=== PATIENT | female | born 1975 | race African-American/Black ===

== ENCOUNTER 2018-11-08 18:53 | Inpatient (IN) ==
[2018-11-08] MEDS ORDERED: ONDANSETRON 4 MG/2 ML VIAL IV PRN (22:22)
[2018-11-08] MEDS ORDERED: DOCUSATE SODIUM 100 MG CAPSULE PO PRN (22:22)
[2018-11-08] MEDS: HEPARIN DRIP 25,000 UNITS/500 ML PREMIX IV SCH (22:30)
[2018-11-08 23:56] LABS: Risk Ratio 3.46; Thyroid Stimulating Hormone 1.58 uIU/ml (0.358-3.74); VLDL CHOLESTEROL 20.4 MG/DL
[2018-11-09 00:01] LABS: INR 1.1; PT Patient Result 11.8 SECS; Partial Thromboplastin Time 37.5 SECS (0-40)
[2018-11-09] MEDS: SODIUM CHLORIDE 0.9% 1,000 ML IV SCH ×2 (00:25→12:03)
[2018-11-09] MEDS ORDERED: HEPARIN 5,000 UNIT/1 ML VIAL IV ONE (00:28)
[2018-11-09] MEDS: oxyCODONE/ACETAMINOPHEN 5-325 MG TABLET PO PRN ×3 (02:00→22:32)
[2018-11-09 06:53] LABS: Basophils % 0.2 % (0.0-0.8); Eosinophils % 0.3 % (0.00-10.9); Hematocrit 31.1 VOL% (35.7-47.0); Hemoglobin 9.5 GM/DL (12.0-16.0); Immature Granulocytes % 1.3 %; Immature Granulocytes Absolute 0.18 #; Lymphocytes # 1.4 10*3/uL (1.4-4.0); Lymphocytes % 10.2 % (21.3-54.2); Mean Corpuscular HGB Conc 30.5 GM/DL (32-36); Mean Corpuscular Volume 92.8 FL (87-102); Mean Platelet Volume 10.6 FL (9.6-12.0); Monocytes % 12.4 % (1.7-12.7); Neutrophils % 75.6 % (38.7-73.9); Platelet Count 157 T/CUMM (130-400); Red Blood Count 3.35 MC/CUMM (3.8-5.5); Red Cell Distribution Width 15.7 % (9.3-17.3); White Blood Count 14.1 T/CUMM (4-12)
[2018-11-09 07:25] LABS: Alanine Aminotransferase 16 U/L (13-56); Albumin 2.7 G/DL (3.4-5.0); Alkaline Phosphatase 65 U/L (45-117); Aspartate Amino Transferase 5 U/L (0-37); Bilirubin,Total < 0.39 MG/DL (0.2-1.0); Blood Urea Nitrogen 15 MG/DL (7-18); Calcium 8.2 MG/DL (8.5-10.1); Glucose 112 MG/DL (74-106); Osmolality,Calculated 276.7 MOS/KG (273-304); Total Protein 7.2 G/DL (6.4-8.3)
[2018-11-09] MEDS: PANTOPRAZOLE 40 MG TABLET PO SCH (08:37)
[2018-11-09] MEDS: HEPARIN DRIP 25,000 UNITS/500 ML PREMIX IV SCH ×2 (16:44→23:32)
[2018-11-10] MEDS: HEPARIN DRIP 25,000 UNITS/500 ML PREMIX IV SCH ×2 (02:47→14:32)
[2018-11-10 06:39] LABS: Basophils % 0.2 % (0.0-0.8); Eosinophils # 0.1 10*3/uL (0.0-0.87); Eosinophils % 0.3 % (0.00-10.9); Hematocrit 29.5 VOL% (35.7-47.0); Hemoglobin 8.9 GM/DL (12.0-16.0); Immature Granulocytes % 0.7 %; Immature Granulocytes Absolute 0.12 #; Lymphocytes # 1.5 10*3/uL (1.4-4.0); Lymphocytes % 8.4 % (21.3-54.2); Mean Corpuscular HGB Conc 30.2 GM/DL (32-36); Mean Corpuscular Volume 91.3 FL (87-102); Mean Platelet Volume 10.5 FL (9.6-12.0); Monocytes % 12.6 % (1.7-12.7); Neutrophils % 77.8 % (38.7-73.9); Platelet Count 158 T/CUMM (130-400); Red Blood Count 3.23 MC/CUMM (3.8-5.5); Red Cell Distribution Width 15.5 % (9.3-17.3); White Blood Count 17.4 T/CUMM (4-12)
[2018-11-10 07:24] LABS: Albumin 2.6 G/DL (3.4-5.0); Bilirubin,Total 0.4 MG/DL (0.2-1.0); Calcium 8.1 MG/DL (8.5-10.1); Osmolality,Calculated 274.7 MOS/KG (273-304); Total Protein 6.7 G/DL (6.4-8.3)
[2018-11-10] MEDS: PANTOPRAZOLE 40 MG TABLET PO SCH (09:27)
[2018-11-10] MEDS: oxyCODONE/ACETAMINOPHEN 5-325 MG TABLET PO PRN ×2 (09:27→19:36)
[2018-11-11] MEDS: HEPARIN DRIP 25,000 UNITS/500 ML PREMIX IV SCH ×3 (01:37→22:00)
[2018-11-11 06:49] LABS: Albumin 2.4 G/DL (3.4-5.0); Bilirubin,Total 0.4 MG/DL (0.2-1.0); Calcium 8.6 MG/DL (8.5-10.1); Osmolality,Calculated 266.2 MOS/KG (273-304); Total Protein 7.4 G/DL (6.4-8.3)
[2018-11-11 07:15] LABS: Basophils % 0.2 % (0.0-0.8); Eosinophils # 0.1 10*3/uL (0.0-0.87); Eosinophils % 0.5 % (0.00-10.9); Hematocrit 26.5 VOL% (35.7-47.0); Hemoglobin 8.4 GM/DL (12.0-16.0); Immature Granulocytes % 0.7 %; Immature Granulocytes Absolute 0.11 #; Lymphocytes # 1.3 10*3/uL (1.4-4.0); Lymphocytes % 7.9 % (21.3-54.2); Mean Corpuscular HGB Conc 31.7 GM/DL (32-36); Mean Corpuscular Volume 89.8 FL (87-102); Mean Platelet Volume 10.8 FL (9.6-12.0); Monocytes % 13.8 % (1.7-12.7); Neutrophils % 76.9 % (38.7-73.9); Platelet Count 150 T/CUMM (130-400); Red Blood Count 2.95 MC/CUMM (3.8-5.5); Red Cell Distribution Width 15.3 % (9.3-17.3); White Blood Count 16.2 T/CUMM (4-12)
[2018-11-11] MEDS: PANTOPRAZOLE 40 MG TABLET PO SCH (09:32)
[2018-11-11] MEDS: oxyCODONE/ACETAMINOPHEN 5-325 MG TABLET PO PRN ×2 (09:32→17:18)
[2018-11-11] MEDS ORDERED: ALBUTEROL 0.63 MG/3 ML NEB RESP TX ONE (15:23)
[2018-11-11] MEDS ORDERED: LEVALBUTEROL 0.63 MG/3 ML NEB RESP TX ONE (15:43)
[2018-11-11] MEDS: ALPRAZolam 0.5 MG TABLET PO PRN (18:47)
[2018-11-11] MEDS: LEVALBUTEROL 0.63 MG/3 ML NEB RESP TX SCH (19:49)
[2018-11-12] MEDS: LEVALBUTEROL 0.63 MG/3 ML NEB RESP TX SCH ×4 (00:12→19:01)
[2018-11-12] MEDS: PANTOPRAZOLE 40 MG TABLET PO SCH (08:46)
[2018-11-12] MEDS: METOPROLOL TARTRATE 25 MG TABLET PO SCH (09:59)
[2018-11-12] MEDS: APIXABAN 5 MG TABLET PO SCH ×2 (09:59→22:15)
[2018-11-12] MEDS ORDERED: APIXABAN 5 MG TABLET PO SCH (10:00)
[2018-11-12 10:10] LABS: % Iron Saturation 9.7 % (18-50)
[2018-11-12 10:45] LABS: Hematocrit 27.7 VOL% (35.7-47.0); Hemoglobin 8.9 GM/DL (12.0-16.0); Mean Corpuscular HGB Conc 32.1 GM/DL (32-36); Mean Corpuscular Volume 88.8 FL (87-102); Red Blood Count 3.12 MC/CUMM (3.8-5.5); White Blood Count 14.2 T/CUMM (4-12)
[2018-11-12 10:46] LABS: Platelet Count 184 T/CUMM (130-400); Red Cell Distribution Width 15.2 % (9.3-17.3)
[2018-11-12 10:48] LABS: Basophils % 0.2 % (0.0-0.8); Eosinophils % 1.1 % (0.00-10.9); Immature Granulocytes % 0.3 %; Lymphocytes % 8.8 % (21.3-54.2); Mean Platelet Volume 11.3 FL (9.6-12.0); Monocytes % 12.1 % (1.7-12.7); Neutrophils % 77.5 % (38.7-73.9)
[2018-11-12 10:49] LABS: Eosinophils # 0.2 10*3/uL (0.0-0.87); Immature Granulocytes Absolute 0.04 #; Lymphocytes # 1.2 10*3/uL (1.4-4.0)
[2018-11-12] MEDS: ALPRAZolam 0.5 MG TABLET PO PRN (20:22)
[2018-11-13] MEDS: LEVALBUTEROL 0.63 MG/3 ML NEB RESP TX SCH ×4 (00:20→21:00)
[2018-11-13 03:06] LABS: Basophils % 0.2 % (0.0-0.8); Eosinophils # 0.2 10*3/uL (0.0-0.87); Eosinophils % 1.8 % (0.00-10.9); Hematocrit 27.4 VOL% (35.7-47.0); Hemoglobin 8.6 GM/DL (12.0-16.0); Immature Granulocytes % 0.4 %; Immature Granulocytes Absolute 0.05 #; Lymphocytes # 1.5 10*3/uL (1.4-4.0); Lymphocytes % 11.9 % (21.3-54.2); Mean Corpuscular HGB Conc 31.4 GM/DL (32-36); Mean Corpuscular Volume 89.5 FL (87-102); Mean Platelet Volume 11.8 FL (9.6-12.0); Monocytes % 11.7 % (1.7-12.7); NRBC # 0.02 10*3/uL; Platelet Count 191 T/CUMM (130-400); Red Blood Count 3.06 MC/CUMM (3.8-5.5); Red Cell Distribution Width 15.4 % (9.3-17.3); White Blood Count 12.3 T/CUMM (4-12)
[2018-11-13 03:22] LABS: Osmolality,Calculated 276.8 MOS/KG (273-304)
[2018-11-13] MEDS: APIXABAN 5 MG TABLET PO SCH ×2 (09:01→21:45)
[2018-11-13] MEDS: PANTOPRAZOLE 40 MG TABLET PO SCH (09:02)
[2018-11-13] MEDS: METOPROLOL TARTRATE 25 MG TABLET PO SCH (09:02)
[2018-11-13] MEDS: FERROUS SULFATE 325 MG TABLET PO SCH ×2 (12:07→21:45)
[2018-11-14] MEDS: LEVALBUTEROL 0.63 MG/3 ML NEB RESP TX SCH ×3 (00:40→14:02)
[2018-11-14 06:20] LABS: Basophils % 0.2 % (0.0-0.8); Eosinophils # 0.3 10*3/uL (0.0-0.87); Eosinophils % 2.8 % (0.00-10.9); Hematocrit 28.9 VOL% (35.7-47.0); Hemoglobin 8.9 GM/DL (12.0-16.0); Immature Granulocytes % 0.3 %; Immature Granulocytes Absolute 0.03 #; Lymphocytes # 1.6 10*3/uL (1.4-4.0); Lymphocytes % 13.1 % (21.3-54.2); Mean Corpuscular HGB Conc 30.8 GM/DL (32-36); Mean Corpuscular Volume 90.6 FL (87-102); Mean Platelet Volume 11.9 FL (9.6-12.0); Monocytes % 7.8 % (1.7-12.7); Neutrophils % 75.8 % (38.7-73.9); Platelet Count 291 T/CUMM (130-400); Red Blood Count 3.19 MC/CUMM (3.8-5.5); Red Cell Distribution Width 15.6 % (9.3-17.3); White Blood Count 11.8 T/CUMM (4-12)
[2018-11-14 06:46] LABS: Calcium 9.1 MG/DL (8.5-10.1); Osmolality,Calculated 278.7 MOS/KG (273-304)
[2018-11-14] MEDS: FERROUS SULFATE 325 MG TABLET PO SCH (08:51)
[2018-11-14] MEDS: PANTOPRAZOLE 40 MG TABLET PO SCH (08:51)
[2018-11-14] MEDS ORDERED: METOPROLOL TARTRATE 25 MG TABLET PO SCH (09:00)
[2018-11-14] MEDS: APIXABAN 5 MG TABLET PO SCH (09:00)
[2018-11-14] MEDS ORDERED: POLYETHYLENE GLYCOL POWDER 17 GM PACK PO SCH (10:52)
[2018-11-14 16:29] VITALS: BP 110/74
== END 2018-11-14 17:20 | disposition home health service (06) | DRG 134 ==
LOC: N.TELEN 20:24 → SUATTDRO 20:24
PROVIDERS: ADMIT Family Medicine; ATTEND Family Medicine